=== PATIENT | male | born 1995 | race Two or more races ===

== ENCOUNTER 2024-03-14 20:40 | Emergency (ER) | payer MEDICAID, SELFPAY ==
[2024-03-14 20:40] VITALS: BMI 30.5
[2024-03-14 20:56] VITALS: BP 133/87; PULSE 105; RESP 17; TEMP 36.7; O2SAT 98
--- NOTE | 2024-03-14 21:00 | XR_ITS ---
Examination: Abdomen sonogram, Limited Date and time of exam: March 14, 2024 2125 hrs. Indications: Right upper abdominal pain beginning 3 months ago Technique: Real-time lozano scale transabdominal sonographic images of the upper abdomen obtained. Findings: Normal gallbladder Normal common bile duct 0.3 cm Pancreatic head 3.6 cm Liver 17.2 cm fatty infiltration no focal liver lesions Normal hepatopedal portal venous flow Patent IVC Impression: Normal gallbladder Mild hepatomegaly fatty liver
--- NOTE | 2024-03-14 21:01 | PD.EDRME ---
Rapid Medical Screening Exam RME Arrival date/time: 03/14/24 20:40 28M with history of alcohol abuse presents to ED with 3 months of worsening RUQ pain when he drinks. Patient states it's worse today. Chief Complaint: General Adult/Misc Complain Vital signs: Vital Signs Temperature 98.1 F 03/14/24 20:56 Pulse Rate 105 H 03/14/24 20:56 Respiratory Rate 17 03/14/24 20:56 Blood Pressure 133/87 H 03/14/24 20:56 Pulse Oximetry (%) 98 03/14/24 20:56 Oxygen Delivery Method Room Air 03/14/24 20:56
[2024-03-14 21:19] LABS: Basophils # (Auto) 0.1 Thou/mm3 (0.0-0.2); Basophils % (Auto) 1 % (0-2.5); Eosinophils # (Auto) 0.2 Thou/mm3 (0.0-0.5); Eosinophils % (Auto) 2 % (0-10); Hematocrit 42.1 % (41.0-53.0); Hemoglobin 15.2 g/dL (13.5-16.0); Immature Granulocytes % (Auto) 0 % (0-0); Immature Granulocytes Auto 0.03 Thou/mm3 (0.00-0.00); Lymphocytes # (Auto) 2.8 Thou/mm3 (1.0-4.8); Lymphocytes % (Auto) 30 % (10-50); Mean Corpuscular HGB Conc 36.1 g/dl (31.0-37.0); Mean Corpuscular Hemoglobin 31.3 pg (25.0-35.0); Mean Corpuscular Volume 87 fL (80-100); Monocytes # (Auto) 0.8 Thou/mm3 (0.0-0.8); Monocytes % (Auto) 9 % (0-12); Neutrophils # (Auto) 5.6 Thou/mm3 (1.8-7.7); Neutrophils % (Auto) 59 % (37-80); Nucleated Red Blood Cell % 0 /100 WBC (0); Platelet Count 209 Thou/mm3 (140-440); RDW Standard Deviation 37.7 fL (35.1-43.9); Red Blood Count 4.86 Miln/mm3 (4.50-5.90); White Blood Count 9.4 Thou/mm3 (3.8-10.6)
[2024-03-14 21:57] LABS: Alanine Aminotransferase 140 U/L (10-49); Albumin, Serum 4.8 gm/dL (3.5-5.0); Albumin/Globulin Ratio 1.7 (1.2-2.2); Alcohol, Blood Medical < 3.0 mg/dL (0-10.0); Alkaline Phosphatase 62 U/L (46-116); Anion Gap 9 (7-16); Aspartate Amino Transferase 60 U/L (0-34); BUN/Creatinine Ratio 19 Ratio (12-20); Blood Urea Nitrogen 19 mg/dL (9-23); Calcium 10.1 mg/dL (8.3-10.6); Calcium (Corrected) 10.1 mg/dL (8.5-10.1); Carbon Dioxide 24.7 mMol/L (20.0-31.0); Chloride 106 mMol/L (98-107); Estimated Creatinine Clearance 116.7 mL/min (>60); Globulin 2.8 gm/dL (2.3-3.5); Glucose 75 mg/dL (74-106); Lipase 35 U/L (12-53); Osmolality,Calculated 280 (275-295); Potassium 3.8 mMol/L (3.4-5.1); Sodium 140 mMol/L (136-145); Total Protein 7.6 gm/dL (5.7-8.2); eGFR > 60 See Note
[2024-03-14 22:13] LABS: Amphetamine/Methamp Scrn,U Negative (Negative); Barbiturate Screen,Urine Negative (Negative); Benzodiazepines Screen,Urine Negative (Negative); Benzoylecgonine Screen, Ur Negative (Negative); Fentanyl Screen,Urine Negative (Negative); Opiate Screen,Urine Negative (Negative); THC Screen,Urine Negative (Negative)
[2024-03-14 22:40] VITALS: BP 145/89; PULSE 84; RESP 18; TEMP 36.7; O2SAT 98
--- NOTE | 2024-03-14 22:45 | EDNOTE_ITS ---
ED General RME/HPI General Chief complaint: General Adult/Misc Complain Stated complaint: RIGHT TRUNK PAIN Time Seen by Provider: 03/14/24 22:45 Arrival date/time: 03/14/24 20:40 RME / HPI RME / HPI narrative: 03/14/24 20:40 28M with history of alcohol abuse presents to ED with 3 months of worsening RUQ pain when he drinks. Patient states it's worse today. ------- Dr. Hartman?s Main ED Evaluation: 28yo male with a history of alcohol abuse presents to the ED for a chief complaint of right flank pain. Patient states he's been waking up with right flank pain in the mornings after he drinks alcohol for the last 3 months. He endorses associated foul-smelling urine. He denies any N/V/D, constipation, dysuria, fever, chills, sweating, hematuria or any other associated symptoms. No known allergies. Related Data Previous Rx's ?Medication ?Instructions ?Recorded ciprofloxacin HCl 500 mg tablet 500 mg PO Q12H #10 tabs 06/26/19 sodium chloride 0.65 % nasal spray 2 spray intranasal QID #88 mL 06/20/22 aerosol (Saline Nasal) Allergies Allergy/AdvReac Type Severity Reaction Status Date / Time No Known Allergies Allergy Verified 08/19/17 15:44 Review of Systems Review of Systems Systems Reviewed: All systems reviewed, normal except as documented Narrative Review of Systems: Gen: No fever, no chills, no weight loss EYES: No discharge, no visual changes, no pain HEENT: No ear pain, no congestion, no sore throat PULM: No shortness of breath, no cough, no congestion CV: No chest pain, no dyspnea on exertion, no palpitations GI: No nausea, no vomiting, no diarrhea, + pain, no constipation : No frequency, no urgency, no dysuria, + foul smelling urine Musc/skel: No joint pain, no back pain Skin: No rash Psyc: No hallucinations, no depression Heme/Lymph: No easy bleeding or bruising tendencies Neuro: No weakness, no headache Past Medical History Past Medical History CARDIAC: Negative Cardiac Disorders or Congestive Heart Failure RESPIRATORY: Negative Chronic Obstructive Pulmonary Disease (COPD) or Asthma GENITOURINARY: Negative Renal Disease ENDOCRINE: Negative Diabetes Mellitus Type 1 or Diabetes Mellitus Type 2 HEMATOLOGIC: Negative Sickle Cell Disease Social History SMOKING STATUS: Current every day smoker ED Exam Narrative Physical exam: GENERAL APPEARANCE: alert and oriented x 4, well-developed, well-nourished, no acute distress HEENT: Normocephalic, atraumatic; pupils equal, round, reactive to light; EOMI; mucous membranes pink, moist; oropharynx clear NECK: Supple LUNGS: CTABL; no wheezes, no rales, no rhonchi HEART: Regular rate, regular rhythm; normal S1, S2; no murmurs ABDOMEN: non distended; normal BS; soft, no tenderness, no guarding, no rebound; no masses, no organomegaly, no hernia BACK: no CVA tenderness EXTREMITIES: atraumatic; no edema NEUROLOGIC: awake; alert and oriented x4; cranial nerves II-XII grossly intact; no focal sensory or motor deficits PSYCHIATRIC: appropriate mood and affect SKIN: warm, dry, normal color; no rashes Course Quality Measures none Orders Category Date Time Status US gall bladder Stat Exams 03/14/24 21:00 Completed Alcohol, Blood Medical Stat Lab 03/14/24 21:07 Completed CBC Stat Lab 03/14/24 21:07 Completed CMP [Comprehensive Metabolic Panel] Stat Lab 03/14/24 21:07 Completed Drug Screen,Urine Stat Lab 03/14/24 21:30 Completed Lipase Stat Lab 03/14/24 21:07 Completed UA, C/S IF [Urinalysis, C/S if Indicated] Stat Lab 03/14/24 21:30 Completed Vital Signs Vital signs: Vital Signs Temperature 98.1 F 03/14/24 20:56 Pulse Rate 105 H 03/14/24 20:56 Respiratory Rate 17 03/14/24 20:56 Blood Pressure 133/87 H 03/14/24 20:56 Pulse Oximetry (%) 98 03/14/24 20:56 Oxygen Delivery Method Room Air 03/14/24 20:56 Pulse ox is 98% on room air, which is normal according to my interpretation. [facility] Patient data External records reviewed:: [facility] previous records (Per chart review, patient was seen here on 06/19/22 for seasonal allergic rhinitis.) Clinical information provided by:: patient Social determinants that could affect healthcare access:: alcohol use Patient has the following chronic illnesses:: none How is presenting disease/condition affected by chronic disease/condition?: no chronic disease Evaluation data The following diagnostics were reviewed and interpreted by me:: lab results and radiology exam(s) Lab and/or radiology exams considered but not ordered:: none Interpretation Summary: CBC is normal, AST and ALT are slightly elevated, Total Bilirubin is normal, Lipase is normal, UDS is negative, UA shows 1+ protein, but no blood or leukocytes, according to my interpretation. ----- I have personally reviewed the radiology data and agree with the radiologist's interpretation below: [place] [facility] Report Signed Patient: ANNI STREETER Record#: [id number] Birthdate: 1995 Age/Sex: 28 / M Location: [facility] Attending Dr: Ordering Physician: Dallas Shah PA-C Date of Service: 03/14/24 Procedure(s): US gall bladder Accession Number(s): [id number] cc: Bhupinder Saldivar MD; NO PRIMARY/FAMILY,PHYSICIAN; Dallas Shah PA-C~ Examination: Abdomen sonogram, Limited Date and time of exam: March 14, 2024 2125 hrs. Indications: Right upper abdominal pain beginning 3 months ago Technique: Real-time lozano scale transabdominal sonographic images of the upper abdomen obtained. Findings: Normal gallbladder Normal common bile duct 0.3 cm Pancreatic head 3.6 cm Liver 17.2 cm fatty infiltration no focal liver lesions Normal hepatopedal portal venous flow Patent IVC Impression: Normal gallbladder Mild hepatomegaly fatty liver Dictated By: Bhupinder Saldivar MD Signed By: <Electronically signed by Bhupinder Saldivar MD in > 03/14/24 2153 Medications Medications considered but not ordered:: none Medication administrations:: see above, if any Consultations Consultation(s) initiated? (list below): No Diagnosis Differential Diagnosis ED Complaint MDM: hepatitis, biliary colic, pancreatitis, gastritis Most likely diagnosis given after review of the tests above:: see below Admission Indicated Admission indicated?: not indicated Explain why admission is indicated or not indicated:: Admission criteria not met. Admission Request Was there a request for admission?: No Disposition Plan Disposition Plan: Discharge Discharge Attestation Discharge Attestation: The patient and all family members were given an opportunity to ask questions and understood the discharge instructions. Discharge instructions specifically effects, indications for sooner follow up or return to the emergency department, and the expected course of current diagnosis. Patient condition: Stable Medical Decision Making MDM Narrative MDM Narrative: Scribe Attestation: 03/14/24 Gabrielle Ferro am scribing for and in the presence of Dr. Hartman. Differential Diagnosis Differential Diagnosis: hepatitis, biliary colic, pancreatitis, gastritis Lab Data 03/14/24 21:07 03/14/24 21:07 Labs: Lab Results 03/14/24 03/14/24 Range/Units 21:07 21:30 WBC 9.4 (3.8-10.6) Thou/mm3 RBC 4.86 (4.50-5.90) Miln/mm3 Hgb 15.2 (13.5-16.0) g/dL Hct 42.1 (41.0-53.0) % MCV 87 (80-100) fL MCH 31.3 (25.0-35.0) pg MCHC 36.1 (31.0-37.0) g/dl RDW Std Deviation 37.7 (35.1-43.9) fL Plt Count 209 (140-440) Thou/mm3 Neut % (Auto) 59 (37-80) % Lymph % (Auto) 30 (10-50) % [place] % (Auto) 9 (0-12) % Eos % (Auto) 2 (0-10) % Baso % (Auto) 1 (0-2.5) % Neut # (Auto) 5.6 (1.8-7.7) Thou/mm3 Lymph # (Auto) 2.8 (1.0-4.8) Thou/mm3 Izard # (Auto) 0.8 (0.0-0.8) Thou/mm3 Eos # (Auto) 0.2 (0.0-0.5) Thou/mm3 Baso # (Auto) 0.1 (0.0-0.2) Thou/mm3 Immature Gran # (Auto) 0.03 H (0.00-0.00) Thou/mm3 Absolute Nucleated RBC 0.00 (0.00-0.00) Thou/mm3 Immature Gran % 0 (0-0) % Nucleated RBC % 0 (0) /100 WBC Sodium 140 (136-145) mMol/L Potassium 3.8 (3.4-5.1) mMol/L Chloride 106 (98-107) mMol/L Carbon Dioxide 24.7 (20.0-31.0) mMol/L Anion Gap 9 (7-16) BUN 19 (9-23) mg/dL Creatinine 1.0 (0.6-1.3) mg/dL Estim Creat Clear Calc 116.7 (>60) mL/min eGFR > 60 (60 - ) See Note BUN/Creatinine Ratio 19 (12-20) Ratio Glucose 75 (74-106) mg/dL Calculated Osmolality 280 (275-295) Calcium 10.1 (8.3-10.6) mg/dL Corrected Calcium 10.1 (8.5-10.1) mg/dL Total Bilirubin 1.0 (0.3-1.2) mg/dL AST 60 H (0-34) U/L ALT 140 H (10-49) U/L Alkaline Phosphatase 62 (46-116) U/L Total Protein 7.6 (5.7-8.2) gm/dL Albumin 4.8 (3.5-5.0) gm/dL Globulin 2.8 (2.3-3.5) gm/dL Albumin/Globulin Ratio 1.7 (1.2-2.2) Lipase 35 (12-53) U/L Ur Collection Type Clean Catch Urine Color Yellow (Lt Yel-Yel) Urine Clarity Clear (Clear/Hazy) Urine pH 6.5 (5.0-7.0) Ur Specific [place] 1.034 (1.001-1.035) Urine Protein 1+ A (Neg - Trace) Urine Glucose (UA) Negative (Negative) Urine Ketones Negative (Negative) Urine Blood Negative (Negative) Urine Nitrite Negative (Negative) Urine Bilirubin Negative (Negative) Urine Urobilinogen (Auto) 2.0 (0.0-1.0) mg/dL Ur Leukocyte Esterase Negative (Negative) Urine RBC 0 (0-3) /hpf Urine WBC 0 (0-5) /hpf Ur Squamous Epith Cells 0 (0-5) /hpf Urine Bacteria None (None) Ur Culture Indicated? Not Indicated Urine Opiates Screen Negative (Negative) Urine Fentanyl Screen Negative (Negative) Ur Barbiturates Screen Negative (Negative) U Amphetamin/Meth Scrn Negative (Negative) U Benzodiazepines Scrn Negative (Negative) U Cocaine Metab Screen Negative (Negative) U Marijuana (THC) Screen Negative (Negative) Ethyl Alcohol < 3.0 (0-10.0) mg/dL Discharge Plan Plan Patient Disposition: HOME (Self Care) Prescriptions/Referrals Prescriptions/Med Rec: No Action ciprofloxacin HCl 500 mg tablet 500 mg PO Q12H Qty: 10 0RF Saline Nasal 0.65 % aerosol,spray 2 spray intranasal QID Qty: 88 0RF Referrals: No Primary/Family,Physician [Primary Care Provider] - In 1 week Problem List Clinical Impression: Right upper quadrant abdominal pain, Transaminitis Patient/Caregiver Discharge Instructions Education Materials: Abdominal Pain Print Language: Malay Stand Alone Forms: [facility]vin Award Info., Patient Portal Info Letter
[2024-03-14 22:58] LABS: Collection Type, Urine Clean Catch; RBC,Urine 0 /hpf (0-3); Squamous Epithelial Cell,Urine 0 /hpf (0-5); WBC,Urine 0 /hpf (0-5)
[2024-03-14 23:18] LABS: Bilirubin,Urine Negative (Negative); Blood,Urine Negative (Negative); Clarity,Urine Clear (Clear/Hazy); Color,Urine Yellow (Lt Yel-Yel); Culture Indicated,Urine Not Indicated; Glucose, Urine Negative (Negative); Ketones,Urine Negative (Negative); Leukocyte Esterase,Urine Negative (Negative); Nitrite,Urine Negative (Negative); PH,Urine 6.5 (5.0-7.0); Protein,Urine 1+ (Neg - Trace); Specific Gravity,Urine 1.034 (1.001-1.035)
[2024-03-14 23:58] VITALS: BP 135/86; PULSE 76; RESP 16; TEMP 36.7; O2SAT 98
== END 2024-03-14 23:59 | disposition home or self-care (01) ==
PROVIDERS: Physician Assistant; Emergency Provider Emergency Medicine
DX: K76.0 Fatty (change of) liver, not elsewhere classified (principal); R74.01 Elevation of levels of liver transaminase levels
CPT/HCPCS: 36415; 76705; 80053; 80307; 80320; 81001; 83690; 85025; 99284; G0480

== ENCOUNTER 2024-09-22 10:55 | Emergency (ER) | payer SELFPAY ==
[2024-09-22 11:11] VITALS: BP 142/92; PULSE 77; RESP 16; TEMP 36.8; O2SAT 98; BMI 28.7
--- NOTE | 2024-09-22 11:38 | XR_ITS ---
Examination: Lumbar spine 3 views Technique one AP lateral coned lateral lower lumbar spine 3 views Date and time: September 22, 2024 1158 hrs. Indications: Lifting injury 2 days ago with back pain. Findings: Adequate alignment lumbar vertebral bodies No significant lumbar disc narrowing No lumbar fracture No spondylolisthesis Impression: No lumbar fracture
--- NOTE | 2024-09-22 11:38 | XR_ITS ---
Examination: Thoracic spine 3 views Technique one AP lateral coned lateral upper dorsal spine 3 views Date and time: September 22, 2024, 1157 hrs. Indications: Lifting injury to the back 2 days ago, back pain. Findings: No acute thoracic fracture Mild diffuse thoracic disc narrowing Intact pedicles Impression: Mild diffuse thoracic degenerative disc disease
--- NOTE | 2024-09-22 11:38 | EDNOTE_ITS ---
ED Back Injury Pain RME/HPI General Chief Complaint: Back Pain/Injury Stated Complaint: Back pain X 2 days, lifted to much weight at work Time Seen by Provider: 09/22/24 11:00 Arrival date/time: 09/22/24 10:55 This is a 29-year-old male that comes into the emergency room with complaints of mid to lower back pain mostly on the lateral left side of his lower back. Patient states that approximately 2 days ago he lifted a battery that was approximately 300 pounds with somebody else and thought he heard something pop. Patient denies any numbness tingling. Patient denies any loss of bowel or bladder control. Patient denies any past medical history Related Data Previous Rx's ?Medication ?Instructions ?Recorded ciprofloxacin HCl 500 mg tablet 500 mg PO Q12H #10 tab s 06/26/19 sodium chloride 0.65 % nasal spray 2 spray intranasal QID #88 mL 06/20/22 aerosol (Saline Nasal) cyclobenzaprine 10 mg tablet 10 mg PO HS #14 tabs 09/03 04/28 ibuprofen 800 mg tablet 800 mg PO Q6H PRN pain #14 t abs 09/22/24 Allergies Allergy/AdvReac Type Severity Reaction Status Date / Time No Known Allergies Allergy Verified 09/22/24 10:59 Review of Systems Review of Systems Systems Reviewed: All systems reviewed, normal except as documented Past Medical History Past Medical History CARDIAC: Negative Cardiac Disorders or Congestive Heart Failure RESPIRATORY: Negative Chronic Obstructive Pulmonary Disease (COPD) or Asthma GENITOURINARY: Negative Renal Disease ENDOCRINE: Negative Diabetes Mellitus Type 1 or Diabetes Mellitus Type 2 HEMATOLOGIC: Negative Sickle Cell Disease Social History SMOKING STATUS: Current every day smoker ED Exam Narrative Physical exam: VITAL SIGNS: Reviewed. GENERAL APPEARANCE: Alert and interactive, follows commands, no acute distress, HEAD AND FACE: Non-traumatic. ENT: PERRL, conjuctiva pink and clear, eyelid no trauma, Mucous membrane moist. NECK: Supple, nontender, no nuchal rigidity. CHEST: No tenderness, no crepitus, no paradoxical movement, no retractions. LUNGS: Clear, well ventilated, symmetric, no rales, no wheezing, no rhonchi, no stridor, good breath sounds bilaterally. HEART: Regular rate, regular rhythm, no murmur, no gallops. ABDOMEN: Soft, nondistended, no guarding, nontender, no rebound, no masses, NEUROLOGICAL: Gross motor function intact sensory function intact, Appropriate for age. MUSCULOSKELETAL: low back nontender, full range of motion. EXTREMITIES: No redness no swelling no skin breakdown on bilateral foot and leg. Distal neurovascular status intact bilateral foot SKIN: Color pink, dry, no rash, no lacerations, no abrasions, no contusions. Course Quality Measures none Orders Category Date Time Status XR lumbar spine 2-3V Stat Exams 09/22/24 11:38 Completed XR thoracic spine 2V Stat Exams 09/22/24 11:38 Completed CYCLObenzaPRINE [Flexeril] Med 09/22/24 11:38 Discontinued 10 mg PO X1 ONE Ibuprofen Tab [Motrin Tab] Med 09/22/24 11:38 Discontinued 800 mg PO X1 ONE Vital Signs Vital signs: Vital Signs Temperature 98.3 F 09/22/24 11:11 Pulse Rate 77 09/22/24 11:11 Respiratory Rate 16 09/22/24 11:11 Blood Pressure 142/92 H 09/22/24 11:11 Pulse Oximetry (%) 98 09/22/24 11:11 Oxygen Delivery Method Room Air 09/22/24 11:11 Back Pain / Injury MDM Narrative MDM Narrative:: lumbar spine: Findings: Adequate alignment lumbar vertebral bodies No significant lumbar disc narrowing No lumbar fracture No spondylolisthesis Impression: No lumbar fracture thoracic x ray: Findings: No acute thoracic fracture Mild diffuse thoracic disc narrowing Intact pedicles Impression: Mild diffuse thoracic degenerative disc disease Spoke to patient at length. Today patient had xrays. There was no acute fracture seen. Exam appeared unremarkable. I explained to patient at length that if there was continued pain to this area or worsened to come back to ED or see primary provider for more xrays or further testing such as CT scan or MRI. X rays are not perfect and sometimes serial films needed. Patient verbalized understanding. Patient states they will follow up with primary provider in 1-2 days or come back to ED if symptoms change or worsen. Patient data External records reviewed:: [facility] previous records Clinical information provided by:: patient Social determinants that could affect healthcare access:: none Patient has the following chronic illnesses:: none How is presenting disease/condition affected by chronic disease/condition?: no chronic disease Evaluation data The following diagnostics were reviewed and interpreted by me:: radiology exam(s) Lab and/or radiology exams considered but not ordered:: none Interpretation Summary: see note Medications / Prescriptions Medications or Prescriptions considered but not ordered:: none Medication administrations:: Medication Administration History Discontinued Medications Cyclobenzaprine HCl (Cyclobenzaprine 5 Mg Tablet) 10 mg PO X1 ONE Stop: 09/22/24 11:39 Last Admin: 09/22/24 11:46 Dose: 10 mg Documented By: LENORE Ibuprofen (Ibuprofen Tab 400 Mg Tablet) 800 mg PO X1 ONE Stop: 09/22/24 11:39 Last Admin: 09/22/24 11:45 Dose: 800 mg Documented By: LENORE see joleen Consultations Consultation(s) initiated? (list below): No Diagnosis Most likely diagnosis given after review of the tests above:: back pain Admission Indicated Admission indicated?: not indicated Admission Request Was there a request for admission?: No Disposition Plan Disposition Plan: Discharge Discharge Attestation Discharge Attestation: The patient and all family members were given an opportunity to ask questions and understood the discharge instructions. Discharge instructions specifically effects, indications for sooner follow up or return to the emergency department, and the expected course of current diagnosis. Patient condition: Stable Discharge Plan Plan Patient Disposition: HOME (Self Care) Patient condition on transfer: Stable Prescriptions/Referrals Prescriptions/Med Rec: New ibuprofen 800 mg tablet 800 mg PO Q6H PRN (Reason: pain) Qty: 14 0RF cyclobenzaprine 10 mg tablet 10 mg PO HS Qty: 14 0RF No Action ciprofloxacin HCl 500 mg tablet 500 mg PO Q12H Qty: 10 0RF Saline Nasal 0.65 % aerosol,spray 2 spray intranasal QID Qty: 88 0RF Referrals: No Primary/Family,Physician [Primary Care Provider] - In 1 week Problem List Clinical Impression: Back pain Patient/Caregiver Discharge Instructions Discharge Activity: activity as tolerated Education Materials: ED Back Pain (Acute or Chronic) Additional Instructions: lumbar spine: Findings: Adequate alignment lumbar vertebral bodies No significant lumbar disc narrowing No lumbar fracture No spondylolisthesis Impression: No lumbar fracture thoracic x ray: Findings: No acute thoracic fracture Mild diffuse thoracic disc narrowing Intact pedicles Impression: Mild diffuse thoracic degenerative disc disease Follow up with primary provider in 1-2 days. Come back to ED if symptoms change or worsen Print Language: Luxembourgish Stand Alone Forms: Parvin Award Info., Patient Portal Info Letter ESTELLA/DEMETRI Supervising Physician SHARATH Supervising Physician: rena
[2024-09-22] MEDS: IBUPROFEN TAB 400 MG TABLET 800 MG PO (11:45)
[2024-09-22] MEDS: CYCLObenzaPRINE 5 MG TABLET 10 MG PO (11:46)
== END 2024-09-22 14:45 | disposition home or self-care (01) ==
PROVIDERS: Emergency Provider Emergency Medicine
DX: M51.34 Other intervertebral disc degeneration, thoracic region (principal); M54.50 Low back pain, unspecified
CPT/HCPCS: 72070; 72072; 72100; 99283; A9270